=== PATIENT | male | born 1990 | race Caucasian/White ===

== ENCOUNTER 2020-04-23 10:37 | Emergency (ER) | payer OTHER ==
[~2020-04-23] VITALS: Ht 172.7 cm; Wt 70.0 kg
[~2020-04-23 10:37] MED LIST: HYDROCHLOROT25 MG PO
[2020-04-23 10:45] VITALS: BP 142/84
[2020-04-23] MEDS ORDERED: AMOXICILLIN875 MG PO (11:38)
[2020-04-23] MEDS ORDERED: ULTRAM50 M1 PO (12:02)
== END 2020-04-23 12:00 | disposition home or self-care (01) | DRG 605 ==
LOC: ED 10:37
DX: S61.452A Open bite of left hand, initial encounter (principal); S61.253A Open bite of left middle finger without damage to nail, initial encounter; W54.0XXA Bitten by dog, initial encounter; Y92.009 Unspecified place in unspecified non-institutional (private) residence as the place of occurrence of the external cause